=== PATIENT | male | born 2000 | race Two or more races ===

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

== ENCOUNTER 2022-11-24 09:50 | Emergency (ER) | payer OTHER ==
[~2022-11-24] VITALS: Ht 185.4 cm; Wt 83.9 kg
== END 2022-11-24 12:02 | disposition home or self-care (01) ==
LOC: ER 09:50
DX: S01.82XA Laceration with foreign body of other part of head, initial encounter (principal); W18.02XA Striking against glass with subsequent fall, initial encounter; Y93.89 Activity, other specified; Y92.89 Other specified places as the place of occurrence of the external cause

== ENCOUNTER 2024-09-09 17:53 | Emergency (ER) | payer OTHER ==
[~2024-09-09] VITALS: Ht 185.4 cm; Wt 90.7 kg
[2024-09-09 18:09] VITALS: BP 122/77; O2SAT 98
[2024-09-09] MEDS ORDERED: DEXAMETHASONE SODIUM PHOSPHATE 4 MG/ML VIAL IM ONE (19:45)
[2024-09-09] MEDS ORDERED: IBU600 MG PO (19:45)
[2024-09-09] MEDS ORDERED: KETOROLAC TROMETHAMINE 60 MG VIAL IM ONE (19:45)
[2024-09-09] MEDS ORDERED: ORPHENADRINE CITRATE 30 MG/ML AMPUL IM ONE (19:45)
[2024-09-09] MEDS ORDERED: NORFLEX100MG PO (19:45)
== END 2024-09-09 20:47 | disposition home or self-care (01) ==
LOC: ER 17:55
DX: S39.82XA Other specified injuries of lower back, initial encounter (principal); V49.88XA Car occupant (driver) (passenger) injured in other specified transport accidents, initial encounter; Y93.89 Activity, other specified; Y92.89 Other specified places as the place of occurrence of the external cause; Y99.8 Other external cause status; M54.50 Low back pain, unspecified

== ENCOUNTER 2025-03-01 03:42 | Emergency (ER) | payer OTHER ==
[~2025-03-01] VITALS: Ht 185.4 cm; Wt 86.2 kg
[~2025-03-01 03:42] MED LIST: IBU600 MG PO; NORFLEX100MG PO
[2025-03-01] MEDS ORDERED: HYOSCYAMINE SULFATE 0.125 MG TAB.SUBL SL STA (04:04)
[2025-03-01] MEDS ORDERED: PROMETHAZINE HCL 50 MG/ML AMPUL IM STA (04:04)
[2025-03-01] MEDS ORDERED: LACTOBACILLUS ACIDOPHILUS 1 CAP CAP PO STA (04:05)
[2025-03-01] MEDS ORDERED: FAMOTIDINE/PF 20 MG IV PUSH STA (04:05)
[2025-03-01] MEDS ORDERED: LACTOBACILLUS ACIDOPHILUS 1 CAP CAP PO ONE (04:13)
[2025-03-01] MEDS ORDERED: PROMETHAZINE HCL 50 MG/ML AMPUL IM ONE (04:13)
[2025-03-01] MEDS ORDERED: FAMOTIDINE/PF 20 MG/2 ML VIAL ONE (04:13)
[2025-03-01] MEDS ORDERED: HYOSCYAMINE SULFATE 0.125 MG TAB.SUBL ONE (04:13)
[2025-03-01] MEDS ORDERED: 0.9 % SODIUM CHLORIDE 1,000 ML IV ONE (04:15)
[2025-03-01 04:28] LABS: BASO % 0.1 % (0.1-1.2); EOS # 0.08 (0.04-0.54); EOS % 0.5 % (0.7-7.0); HEMATOCRIT 48.8 % (40.1-51.0); LYMPH # 0.66 (1.18-3.74); LYMPH % 4.2 % (19.3-53.1); MEAN CORPUSCULAR HEMOGLOBIN 29.6 pg (25.6-32.2); MONO # 1.14 (0.24-0.82); MONO % 7.3 % (4.7-12.5); NEUT # 13.61 (1.56-6.13); NEUT % 87.6 % (34.0-71.1); PLATELET COUNT 260 K/uL (163-369); RED BLOOD COUNT 5.74 M/uL (4.63-6.08); RED CELL DISTRIBUTION WIDTH 11.1 % (11.6-14.4)
[2025-03-01] MEDS ORDERED: FAMOTIDINE/PF 20 MG in 0.9 % SODIUM CHLORIDE 8 ML IV PUSH STA (04:31)
[2025-03-01 04:48] LABS: CREATININE SERUM 0.68 mg/dL (0.70-1.30); GFR 144.51; POTASSIUM 3.9 mEq/L (3.5-5.1)
[2025-03-01 06:27] LABS: PH,URINE 5.5 (5.0-8.0); URINE APPEARANCE Clear; URINE BILIRRUBIN Small (NEGATIVE); URINE BLOOD Negative; URINE COLOR Dark Yellow; URINE GLUCOSE Negative (NEGATIVE); URINE LEUKOCYTE Negative; URINE NITRATE Negative; URINE PROTEIN 30 (NEGATIVE)
[2025-03-01 06:32] LABS: URINE BACTERIA 18.3 uL (0.0-1933); URINE EPITHELIAL CELLS 6.6 uL (0.0-38.8); URINE RBC 4.8 uL (0.0-20.8); URINE WBC 10.9 uL (0.0-23.2)
[2025-03-01 06:42] LABS: URINE CAST 0.58 uL (0.0-1.40); URINE KETONE 80 (NEGATIVE)
[2025-03-01] MEDS ORDERED: ONDANSETRON HCL 2 MG/ML VIAL ONE (07:17)
[2025-03-01] MEDS ORDERED: ONDANSETRON HCL 2 MG/ML VIAL IV STA (07:19)
[2025-03-01] MEDS ORDERED: CIPROFLOXACIN IN 5 % DEXTROSE 400 MG/200 ML PIGGYBAG IV ONE ×2 (09:41→09:45)
[2025-03-01] MEDS ORDERED: METRONIDAZOLE/SODIUM CHLORIDE 500 MG/100 ML PIGGYBACK IV ONE ×2 (09:42→09:45)
== END 2025-03-01 13:27 | disposition home or self-care (01) ==
LOC: ER 04:04
PROVIDERS: General Practice
DX: R11.10 Vomiting, unspecified (principal); R19.7 Diarrhea, unspecified